=== PATIENT | male | born 1970 | race Caucasian/White ===

== ENCOUNTER 2020-07-31 08:18 | Emergency (ER) | payer OTHER, SELFPAY ==
--- NOTE | ~2020-07-31 | XR_ITS ---
EXAMINATION: XR foot LT min 3V DATE: 07/31/2020 08:44 INDICATION: Left foot injury and pain. TECHNIQUE: 4 views of left foot were obtained. COMPARISON: Left foot radiographs 01/15/2012 FINDINGS: Bone alignment is normal. No fracture. There is mild osteoarthritis of first metatarsophala ngeal joint and some of the interphalangeal joints. There are enthesophytes at the posterior and plan tar aspects of calcaneal tuberosity. IMPRESSION: 1. Mild polyarticular osteoarthritis. Reviewed, dictated and finalized at location A.
[2020-07-31 08:40] VITALS: BP 154/81; PULSE 100; RESP 16; TEMP 37.2; O2SAT 98
--- NOTE | 2020-07-31 08:58 | ED.LOWEXIN ---
HPI - Extremity Injury (Lower) General Chief Complaint: Extremity Injury, Lower Stated Complaint: Possible Broken Left Foot Time Seen by Provider: 07/31/20 08:51 Source: patient and RN notes reviewed Mode of arrival: ambulatory Limitations: no limitations History of Present Illness HPI Narrative: Patient presents today complaining of a left foot injury. Last night he got mad and kicked a freezer. He was intoxicated at the time. He came home, passed out, and woke up this morning with severe pain. States he has been nonambulatory since the injury. Denies numbness or tingling. Currently rates his pain at rest 3/10, which increases to 10/10 with movement. He has tried no [id number] interventions prior to arrival. MD complaint: foot injury Related Data Home Medications Medication Instructions Recorded Confirmed albuterol sulfate 90 mcg INHALATION DIRECTED PRN 07/31/20 07/31/20 amlodipine 5 mg PO DAILY 07/31/20 07/31/20 losartan-hydrochlorothiazide 100 tablet PO DAILY 07/31/20 07/31/20 magnesium 100 mg PO DAILY 07/31/20 07/31/20 Allergies Allergy/AdvReac Type Severity Reaction Status Date / Time No Known Allergies Allergy Unverified 03/02/17 11:28 Review of Systems Review of Systems: Narrative: CONSTITUTIONAL: Denies body aches, fever, chills, or sweats. EYES: Denies visual changes, redness, or discharge. ENT: Denies rhinorrhea, congestion, sore throat, or otalgia. CARDIOVASCULAR: Denies chest pain, palpitations, or edema. RESPIRATORY: Denies cough or dyspnea. GASTROINTESTINAL: Denies abdominal pain, nausea, vomiting, or diarrhea. GENITOURINARY: Denies dysuria or hematuria. SKIN: Denies rash, itching, or wounds. MUSCULOSKELETAL: Denies back pain, or myalgia.+ Left foot injury NEUROLOGIC: Denies headache, numbness, tingling, or weakness. PSYCH: Denies depression or anxiety. [facility] Past Medical History Medical History (Updated 07/31/20 @ 09:03 by Clarice Mcclain, EVENT SALES REPRESENTATIVE, ) Hypertension Social History Social History Gender identity (if verbalized by the patient): Male Comments At time of signature, I have reviewed and agree with nursing past medical, surgical, social and family history unless otherwise noted. Please see nursing chart for further information. There is no relevant family history pertinent to the presenting complaint Exam Narrative: Exam Narrative: GENERAL: Well-appearing, well-nourished, and in no acute distress. HEAD: Normocephalic, atraumatic. EYES: EOMI. No redness or drainage. Conjunctivae normal. ENT: Mucous membranes pink and moist. NECK: Normal AROM. CHEST: No respiratory distress. EXTREMITIES: Left foot: Mild edema and ecchymosis to the proximal medial foot with tenderness to this area as well. Distal sensation intact. Capillary refill normal. Pedal pulse normal. Full range of motion toes and ankle. SKIN: Warm, dry, no rash. Capillary refill normal. Normal skin turgor. NEURO: No focal deficits. Alert and oriented x3. Gait steady. PSYCH: Normal affect. No signs of depression or anxiety. Course Vital Signs Vital signs: Vital Signs Temperature 98.9 F 07/31/20 08:40 Pulse Rate 100 07/31/20 08:40 Respiratory Rate 16 07/31/20 08:40 Blood Pressure 154/81 H 07/31/20 08:40 Pulse Oximetry 98 07/31/20 08:40 Temperature 98.9 F 07/31/20 08:40 Pulse Rate 100 07/31/20 08:40 Respiratory Rate 16 07/31/20 08:40 Blood Pressure 154/81 H 07/31/20 08:40 Pulse Oximetry 98 07/31/20 08:40 Reviewed. Pt has been instructed to follow up with his PCP regarding his elevated blood pressure today. MDM - Extremity Injury (Lower) Differential Diagnosis Differential diagnosis: Likely other (Foot fracture, contusion, sprain) Imaging Data Radiologist's impression: ITS Impressions Foot X-Ray 07/31/20 08:46 IMPRESSION: 1. Mild polyarticular osteoarthritis. Critical Care Time Critical Care Time Critical Care Time: No Discharge
== END 2020-07-31 09:14 | disposition home or self-care (01) ==
PROVIDERS: Emergency Provider Nurse Practitioner; PCP Family Medicine
DX: S90.32XA Contusion of left foot, initial encounter (principal); W22.8XXA Striking against or struck by other objects, initial encounter; I10 Essential (primary) hypertension
CPT/HCPCS: 73630; 99203; G0463

== ENCOUNTER 2023-08-27 13:44 | Emergency (ER) | payer OTHER, SELFPAY ==
--- NOTE | ~2023-08-27 | XR_ITS ---
EXAMINATION: XR toe 1st RT min 2V DATE: 08/27/2023 14:08 INDICATION: Right great toe injury and pain. TECHNIQUE: 4 views of right great toe were obtained. COMPARISON: Right foot radiographs 04/30/2016 FINDINGS: Bone alignment is normal. There is a fracture of dorsal base of first distal phalanx with 2 mm distraction. There is mild osteoarthritis of first metatarsophalangeal joint and first interphala ngeal joint. IMPRESSION: 1. Fracture of dorsal base of first distal phalanx. Reviewed, dictated and finalized at location A.
[2023-08-27 13:55] VITALS: BP 152/75; PULSE 78; RESP 18; TEMP 36.4; O2SAT 98
--- NOTE | 2023-08-27 13:57 | ED.LOWEXIN ---
HPI - Extremity Injury (Lower) General Chief Complaint: Extremity Injury, Lower Stated Complaint: right big to injury Source: patient Mode of arrival: ambulatory Limitations: no limitations History of Present Illness HPI Narrative: 53 y/o male presented for c/o right great toe pain after injury last night. States he struck the toe on the floor or the bed. Endorses bruising and mild swelling. Took ibuprofen this morning. Has been walking today. Related Data Home Medications Medication Instructions Recorded Confirmed albuterol sulfate 90 mcg/actuation 90 mcg inhalation DIRECTED PRN 07/31/20 07/31/20 aerosol inhaler Shortness Of Breath Or Wheezing amlodipine 5 mg tablet 5 mg PO DAILY 07/31/20 07/31/20 losartan 100 100 tablet PO DAILY 07/31/20 07/31/20 mg-hydrochlorothiazide 12.5 mg tablet magnesium 100 mg tablet 100 mg PO DAILY 07/31/20 07/31/20 omeprazole 40 mg capsule,delayed mg 08/27/23 release Allergies Allergy/AdvReac Type Severity Reaction Status Date / Time No Known Allergies Allergy Unverified 03/02/17 11:28 Review of Systems Review of Systems: CONSTITUTIONAL: Denies fever, chills CARDIOVASCULAR: Denies chest pain, palpitations, or edema. RESPIRATORY: Denies cough or dyspnea. GASTROINTESTINAL: Denies abdominal pain, nausea, vomiting, or diarrhea. SKIN: Denies rash or wounds. MUSCULOSKELETAL: Reports right great toe pain NEUROLOGIC: Denies headache, numbness, tingling, or weakness. All systems reviewed & are unremarkable except as noted in HPI and below PMFSH Past Medical History Medical History Hypertension Social History Social History Gender identity (if verbalized by the patient): Male Comments At time of signature, I have reviewed and agree with nursing past medical, surgical, social and family history unless otherwise noted. Please see nursing chart for further information. There is no relevant family history pertinent to the presenting complaint Exam Narrative: GENERAL: Well-appearing CHEST: Speaks in full sentences. No respiratory distress. HEART: Regular rate and rhythm. Normal and equal peripheral pulses. EXTREMITIES: Right foot has normal strength and sensation, slightly decreased range of motion of right great toe due to pain with movement. mild swelling, ecchymosis to dorsal aspect over the IP joint and tender to palpation, scant dried blood to base of nail, no subungual hematoma; the nail is intact. No obvious deformity; alignment normal, pulse palpable and equal bilaterally, skin warm, dry, pink. Capillary refill less than 3 seconds. SKIN: Warm, dry NEURO: Alert and oriented x3. Course Course Emergency Course: Patient is aware of diagnosis, understands and agrees to treatment plan. Anticipatory guidance given. Patient agrees to follow-up as directed and is aware of reasons to seek care at the emergency department. Portions of this record may have been created with voice recognition software Level of Care: Express Care Visit Vital Signs Vital signs: Vital Signs Temperature 97.6 F 08/27/23 13:55 Pulse Rate 78 08/27/23 13:55 Respiratory Rate 18 08/27/23 13:55 Blood Pressure 152/75 H 08/27/23 13:55 Pulse Oximetry 98 08/27/23 13:55 Oxygen Delivery Room Air 08/27/23 13:55 Temperature 97.6 F 08/27/23 13:55 Pulse Rate 78 08/27/23 13:55 Respiratory Rate 18 08/27/23 13:55 Blood Pressure 152/75 H 08/27/23 13:55 Pulse Oximetry 98 08/27/23 13:55 Oxygen Delivery Room Air 08/27/23 13:55 Reviewed MDM - Extremity Injury (Lower) MDM Narrative Medical decision making narrative: x-ray reviewed with patient. postop shoe applied. 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 Advised supportive measures and signs/symptoms to go to the ER. Pt is appropriate for outpt treatme
== END 2023-08-27 14:44 | disposition home or self-care (01) ==
PROVIDERS: Emergency Provider Nurse Practitioner Family
DX: S92.421A Displaced fracture of distal phalanx of right great toe, initial encounter for closed fracture (principal); X58.XXXA Exposure to other specified factors, initial encounter; I10 Essential (primary) hypertension
CPT/HCPCS: 73660; 99204; G0463